=== PATIENT | male | born 1970 | race Two or more races ===

== ENCOUNTER 2018-08-05 18:28 | Inpatient (IN) | payer MEDICAID ==
[~2018-08-05] VITALS: Ht 180.3 cm; Wt 86.6 kg
[2018-08-05 19:53] LABS: CLARITY URINE CLEAR (CLEAR); COLOR URINE DARK YELLOW (YELLOW); KETONES URINE NEGATIVE (NEGATIVE); LEUKOCYTE ESTERASE URINE NEGATIVE (NEGATIVE); NITRITE URINE POSITIVE (NEGATIVE); OCCULT BLOOD URINE NEGATIVE (NEGATIVE); PROTEIN URINE NEGATIVE (NEGATIVE); SPECIFIC GRAVITY URINE 1.024 (1.005-1.030)
[2018-08-05 22:06] LABS: HEMATOCRIT. 42.4 % (42.0-52.0); HEMOGLOBIN. 14.1 g/dL (14.0-18.0); MEAN CORPUSCULAR HEMOGLOBIN 29.8 pg (28.0-32.0); MEAN CORPUSCULAR VOLUME 89.6 fL (80.0-94.0); MEAN PLATELET VOLUME 7.1 fl (7.4-10.4); PLATELET 218 x1000/uL (130-400); RED BLOOD CELL COUNT 4.73 mill/uL (4.7-6.1); RED CELL DISTRIBUTION WIDTH 13.8 % (11.6-14.6)
[2018-08-05 22:08] LABS: CHLORIDE 104 mEq/L (98-107)
[2018-08-05 22:10] LABS: INR 1.1
[2018-08-05] MEDS ORDERED: SODIUM CHLORIDE 0.9% 1,000 ML IV ONE (22:39)
[2018-08-05] MEDS ORDERED: ONDANSETRON HCL 4MG/2ML INJ IV STA (22:39)
[2018-08-05] MEDS ORDERED: KETOROLAC 30MG/ML VIAL IV STA (22:39)
[2018-08-05] MEDS ORDERED: MORPHINE SULFATE 4 MG/ML CPJ (NOT FOR IM USE) IV STA (22:39)
[2018-08-05 23:06] LABS: PLATELET ESTIMATE NORMAL
[2018-08-05] MEDS ORDERED: PIPERACILLIN/TAZ 3.375G PREMIX 50 ML IV ONE (23:45)
[2018-08-05] MEDS ORDERED: METRONIDAZOLE 500 MG PREMIX 100 ML IV ONE (23:45)
[2018-08-06] VITALS (7 sets, daily range): BP systolic 95–121; BP diastolic 50–70
[2018-08-06 00:07] LABS: CHLORIDE 104 mEq/L (98-107)
[2018-08-06 00:11] LABS: ETHANOL BLOOD < 10 mg/dL
[2018-08-06] MEDS ORDERED: SODIUM CHLORIDE 0.45% 1,000 ML IV SCH (00:36)
[2018-08-06] MEDS ORDERED: ACETAMINOPHEN 650MG SUPP PR PRN (00:45)
[2018-08-06] MEDS ORDERED: ONDANSETRON HCL 4MG/2ML INJ IV PRN ×2 (00:45→09:30)
[2018-08-06] MEDS ORDERED: HYDROCODONE/ACETAMINOPHEN 5/325MG TABLET PO PRN (00:45)
[2018-08-06] MEDS ORDERED: DIPHENHYDRAMINE 50MG/ML VIAL IV PRN (00:45)
[2018-08-06] MEDS ORDERED: DOCUSATE SODIUM 100MG CAPSULE PO PRN (00:45)
[2018-08-06] MEDS ORDERED: ACETAMINOPHEN 325MG TABLET PO PRN (00:45)
[2018-08-06] MEDS ORDERED: NA PHOS,M-B/NA PHOS,DI-BA ENEMA 118ML PR PRN (00:45)
[2018-08-06] MEDS ORDERED: HYDROCODONE/ACETAMINOPHEN 10/325MG TABLET PO PRN (00:45)
[2018-08-06] MEDS ORDERED: MAGNESIUM/ALUMINUM HYDROXIDE/SIMETHICONE 30ML UDC PO PRN (00:45)
[2018-08-06] MEDS ORDERED: GUAIFENESIN 200MG/10ML SUGAR FREE UDC PO PRN (00:45)
[2018-08-06] MEDS ORDERED: IPRATROPIUM/ALBUTEROL 0.5-3(2.5)MG/3ML NEB INH PRN (00:45)
[2018-08-06] MEDS ORDERED: CLONIDINE 0.1MG TABLET PO PRN (00:45)
[2018-08-06] MEDS ORDERED: ACETAMINOPHEN 650MG/20.3ML UDC GT PRN (00:45)
[2018-08-06] MEDS ORDERED: MULT-1146 MT (04:49)
[2018-08-06] MEDS ORDERED: ONDANSETRON 4MG ODT PO PRN (05:15)
[2018-08-06] MEDS ORDERED: CEFTRIAXONE 1 G PREMIX 50 ML IV SCH (06:00)
[2018-08-06] MEDS ORDERED: SODIUM CHLORIDE 0.9% INJ 3ML FLUSH IVF SCH (06:00)
[2018-08-06] MEDS ORDERED: ROCURONIUM BROMIDE 10MG/ML VIAL 5ML IV ONE ×2 (08:45→08:47)
[2018-08-06] MEDS ORDERED: NEOSTIGMINE METHYLSULFATE 1MG/ML 10 ML VIAL ONE (08:46)
[2018-08-06] MEDS ORDERED: FENTANYL CITRATE/PF 50MCG/ML 5ML VIAL ONE (08:47)
[2018-08-06] MEDS ORDERED: MIDAZOLAM HCL 2 MG/2 ML VIAL ONE (08:47)
[2018-08-06] MEDS ORDERED: DEXAMETHASONE 4MG/ML 1ML VIAL ONE (08:48)
[2018-08-06] MEDS ORDERED: LIDOCAINE HCL/PF 1% 10 MG/ML 5ML VIAL ONE (08:48)
[2018-08-06] MEDS ORDERED: ONDANSETRON HCL 4MG/2ML INJ ONE (08:48)
[2018-08-06] MEDS ORDERED: GLYCOPYRROLATE 0.2 MG/ML 2ML VIAL ONE (08:48)
[2018-08-06] MEDS ORDERED: PROPOFOL 200MG/20ML VIAL IV ONE (08:48)
[2018-08-06] MEDS ORDERED: KETOROLAC 30MG/ML VIAL ONE (08:48)
[2018-08-06] MEDS ORDERED: METOCLOPRAMIDE HCL 10MG/2ML VIAL ONE (08:48)
[2018-08-06] MEDS ORDERED: METRONIDAZOLE 500 MG PREMIX 100 ML IV SCH (09:00)
[2018-08-06] MEDS ORDERED: FENTANYL CITRATE/PF 50MCG/ML 2ML VIAL IV PRN (09:30)
[2018-08-06] MEDS ORDERED: HYDROMORPHONE HCL/PF 2MG/ML CPJ IV PRN (09:30)
[2018-08-06] MEDS ORDERED: DIPHENHYDRAMINE INJ IV PRN (10:15)
[2018-08-06] MEDS ORDERED: NALOXONE INJ IV PRN (10:15)
[2018-08-06] MEDS ORDERED: HYDROMORPHONE PCA 10MG/50ML IV PRN (10:15)
[2018-08-06] MEDS ORDERED: ONDANSETRON INJ IV PRN (10:15)
[2018-08-06] MEDS ORDERED: DEXT 5%/0.45% NACL KCL 20MEQ/L 1,000 ML IV SCH (11:45)
[2018-08-06] MEDS: DEXT 5%/0.45% NACL 1000ML 1,000 ML IV SCH (13:30)
[2018-08-06] MEDS: PIPERACILLIN/TAZ 3.375G PREMIX 50 ML IV SCH ×2 (14:56→20:49)
[2018-08-06] MEDS: METRONIDAZOLE 500 MG PREMIX 100 ML IV SCH (16:33)
[2018-08-07] MEDS: METRONIDAZOLE 500 MG PREMIX 100 ML IV SCH ×3 (00:28→17:09)
[2018-08-07] MEDS: DEXT 5%/0.45% NACL 1000ML 1,000 ML IV SCH ×3 (00:28→18:36)
[2018-08-07] MEDS: PIPERACILLIN/TAZ 3.375G PREMIX 50 ML IV SCH ×4 (03:57→20:00)
[2018-08-07 04:00] VITALS: BP 94/56
[2018-08-07 07:38] LABS: HEMATOCRIT. 33.9 % (42.0-52.0); HEMOGLOBIN. 11.6 g/dL (14.0-18.0); MEAN CORPUSCULAR HEMOGLOBIN 31.2 pg (28.0-32.0); MEAN PLATELET VOLUME 7.3 fl (7.4-10.4); MONOCYTES % 5.4 % (2.0-8.0); NEUTROPHILS % 85.6 % (40.0-76.0); PLATELET 184 x1000/uL (130-400); RED BLOOD CELL COUNT 3.73 mill/uL (4.7-6.1); RED CELL DISTRIBUTION WIDTH 14.1 % (11.6-14.6)
[2018-08-07 08:00] VITALS: BP 105/69
[2018-08-07 08:50] LABS: CHLORIDE 107 mEq/L (98-107)
[2018-08-07 08:59] LABS: LDL CHOLESTEROL 80 mg/dL (5-100)
[2018-08-07 09:01] LABS: HDL CHOLESTEROL 42 mg/dL (40-59)
[2018-08-07 12:00] VITALS: BP 110/67
[2018-08-07 16:00] VITALS: BP 126/76
[2018-08-07 20:00] VITALS: BP 117/74
[2018-08-08] VITALS: BP 124/70
[2018-08-08] MEDS: METRONIDAZOLE 500 MG PREMIX 100 ML IV SCH ×3 (00:29→17:00)
[2018-08-08] MEDS: PIPERACILLIN/TAZ 3.375G PREMIX 50 ML IV SCH ×4 (01:09→21:25)
[2018-08-08] MEDS: DEXT 5%/0.45% NACL 1000ML 1,000 ML IV SCH ×2 (03:38→16:59)
[2018-08-08 04:00] VITALS: BP 121/69
[2018-08-08 08:00] VITALS: BP 122/83
[2018-08-08 12:00] VITALS: BP 123/82
[2018-08-08 16:00] VITALS: BP 124/75
[2018-08-08 20:00] VITALS: BP 129/80
[2018-08-09] VITALS: BP 125/74
[2018-08-09] MEDS: METRONIDAZOLE 500 MG PREMIX 100 ML IV SCH ×3 (00:06→16:59)
[2018-08-09] MEDS: PIPERACILLIN/TAZ 3.375G PREMIX 50 ML IV SCH ×3 (02:50→13:48)
[2018-08-09 04:00] VITALS: BP 122/74
[2018-08-09] MEDS ORDERED: CEFTRIAXONE 1 G PREMIX 50 ML IV SCH (06:00)
[2018-08-09 08:00] VITALS: BP 126/82
[2018-08-09] MEDS: DEXT 5%/0.45% NACL 1000ML 1,000 ML IV SCH ×2 (08:43→10:33)
[2018-08-09 12:00] VITALS: BP 109/66
[2018-08-09 16:00] VITALS: BP 108/69
[2018-08-09 16:15] LABS: BASOPHILS % 0.4 % (0.0-2.0); EOSINOPHILS % 0.8 % (0.0-5.0); HEMOGLOBIN. 12.5 g/dL (14.0-18.0); LYMPHOCYTES % 12.1 % (20.0-50.0); MEAN CORPUSCULAR HEMOGLOBIN 30.1 pg (28.0-32.0); MEAN CORPUSCULAR VOLUME 88.7 fL (80.0-94.0); MEAN PLATELET VOLUME 6.9 fl (7.4-10.4); MONOCYTES % 9.3 % (2.0-8.0); NEUTROPHILS % 77.4 % (40.0-76.0); PLATELET 242 x1000/uL (130-400); RED BLOOD CELL COUNT 4.17 mill/uL (4.7-6.1); RED CELL DISTRIBUTION WIDTH 13.2 % (11.6-14.6)
[2018-08-09 16:24] LABS: CHLORIDE 104 mEq/L (98-107)
[2018-08-09 18:02] LABS: CLARITY URINE CLEAR (CLEAR); COLOR URINE YELLOW (YELLOW); KETONES URINE NEGATIVE (NEGATIVE); LEUKOCYTE ESTERASE URINE NEGATIVE (NEGATIVE); NITRITE URINE NEGATIVE (NEGATIVE); OCCULT BLOOD URINE NEGATIVE (NEGATIVE); PROTEIN URINE NEGATIVE (NEGATIVE); SPECIFIC GRAVITY URINE 1.008 (1.005-1.030); UROBILINOGEN URINE 0.2 E.U./dL (0.2-1.0)
[2018-08-09 20:00] VITALS: BP 120/77
[2018-08-09] MEDS ORDERED: LEVOFLOXACIN 500MG PREMIX 100 ML IV SCH (23:00)
[2018-08-10] VITALS: BP 125/81
[2018-08-10] MEDS: DEXT 5%/0.45% NACL 1000ML 1,000 ML IV SCH ×2 (00:14→06:04)
[2018-08-10 08:00] VITALS: BP 117/76
[2018-08-10 08:13] LABS: *AMPHETAMINES SCREEN URINE NEGATIVE (NEGATIVE); *BARBITURATES SCREEN URINE NEGATIVE (NEGATIVE); *BENZODIAZEPINES SCREEN URINE NEGATIVE (NEGATIVE); *COCAINE SCREEN URINE NEGATIVE (NEGATIVE); CANNABINOID URINE SCREEN NEGATIVE (NEGATIVE); METHADONE URINE SCREEN NEGATIVE (NEGATIVE); OPIATES URINE SCREEN NEGATIVE (NEGATIVE)
[2018-08-10 08:14] LABS: PHENCYCLIDINE URINE SCREEN NEGATIVE (NEGATIVE)
[2018-08-10 12:00] VITALS: BP 123/78
[2018-08-10 13:21] LABS: BASOPHILS % 0.3 % (0.0-2.0); EOSINOPHILS % 2.7 % (0.0-5.0); HEMATOCRIT. 39.9 % (42.0-52.0); HEMOGLOBIN. 13.5 g/dL (14.0-18.0); LYMPHOCYTES % 20.2 % (20.0-50.0); MEAN CORPUSCULAR HEMOGLOBIN 30.2 pg (28.0-32.0); MEAN CORPUSCULAR VOLUME 89.3 fL (80.0-94.0); MEAN PLATELET VOLUME 6.7 fl (7.4-10.4); MONOCYTES % 12.2 % (2.0-8.0); NEUTROPHILS % 64.6 % (40.0-76.0); PLATELET 251 x1000/uL (130-400); RED BLOOD CELL COUNT 4.47 mill/uL (4.7-6.1); RED CELL DISTRIBUTION WIDTH 13.2 % (11.6-14.6)
[2018-08-10 13:54] LABS: CHLORIDE 104 mEq/L (98-107)
[2018-08-10 14:11] VITALS: BP 120/78
[2018-08-10 16:00] VITALS: BP 120/78
[2018-08-10] MEDS ORDERED: LEVO500T2 MT (17:28)
== END 2018-08-10 20:45 | disposition home health service (06) | DRG 231 ==
LOC: ER 08-06 00:07 → 6EST 08-06 00:18 → EDBEDREQ 08-06 00:21 → EDBEDREQTM 08-06 00:21 → EDBEDREQDT 08-06 00:21 → ENRESERV 08-06 01:33
PROVIDERS: ADMIT Family Medicine; ATTEND Family Medicine
PROC: 0D1N0Z4 Bypass Sigmoid Colon to Cutaneous, Open Approach (ICD-10-PCS; 2018-08-06)
PROC: 0DTG0ZZ Resection of Left Large Intestine, Open Approach (ICD-10-PCS; principal; 2018-08-06 08:30)
DX: K57.20 Diverticulitis of large intestine with perforation and abscess without bleeding (principal); K66.8 Other specified disorders of peritoneum; R16.0 Hepatomegaly, not elsewhere classified; R31.9 Hematuria, unspecified; D72.829 Elevated white blood cell count, unspecified; N20.0 Calculus of kidney; M19.90 Unspecified osteoarthritis, unspecified site; Z79.899 Other long term (current) drug therapy
CPT/HCPCS: 36415; 74176; 76770; 80053; 80061; 80305; 81003; 83605; 83690; 84484; 85025; 85610; 87040; 87070; 87075; 87077; 87186; 87205; 96361; 96365; 96375; 97116; 97162; 99285; C1893; G0482; J0696; J1100; J1170; J1885; J1956; J2250; J2270; J2405; J2543; J2704; J2710; J2765; J3010; J3490; J7030

== ENCOUNTER 2019-01-19 07:02 | Inpatient (IN) | payer MEDICAID ==
[~2019-01-19] VITALS: Ht 180.3 cm; Wt 86.2 kg
[~2019-01-19 07:02] MED LIST: LACTATED RINGERS 1,000 ML IV SCH; LEVO500T2 MT; MULT-1146 MT
[2019-01-19] MEDS ORDERED: LEVOFLOXACIN 500MG PREMIX 100 ML IV ONE (09:09)
[2019-01-19] MEDS ORDERED: FENTANYL CITRATE/PF 50MCG/ML 2ML VIAL ONE ×2 (09:14→10:33)
[2019-01-19] MEDS ORDERED: MIDAZOLAM HCL 2 MG/2 ML VIAL ONE (09:14)
[2019-01-19] MEDS ORDERED: PROPOFOL 200MG/20ML VIAL IV ONE (09:14)
[2019-01-19] MEDS ORDERED: ROCURONIUM BROMIDE 10MG/ML VIAL 5ML IV ONE (09:14)
[2019-01-19] MEDS ORDERED: ACETAMINOPHEN 650MG SUPP PR PRN (09:15)
[2019-01-19] MEDS ORDERED: ONDANSETRON HCL 4MG/2ML INJ IV PRN ×2 (09:15→09:30)
[2019-01-19] MEDS ORDERED: FENTANYL CITRATE/PF 50MCG/ML 2ML VIAL IV PRN (09:30)
[2019-01-19] MEDS ORDERED: METRONIDAZOLE 500 MG PREMIX 100 ML IV ONE (09:47)
[2019-01-19] MEDS ORDERED: BUPIVACAINE HCL 0.5% 290 ML in ON-Q PM015 DRUG DELIV DEVICE 1 EA IR SCH (10:15)
[2019-01-19] MEDS ORDERED: BUPIVACAINE HCL 0.5% (5MG/ML) 50ML ONE (10:23)
[2019-01-19] MEDS ORDERED: NEOSTIGMINE METHYLSULFATE 1MG/ML 10 ML VIAL ONE (10:25)
[2019-01-19] MEDS ORDERED: ONDANSETRON HCL 4MG/2ML INJ ONE (10:25)
[2019-01-19] MEDS ORDERED: GLYCOPYRROLATE 0.2 MG/ML 2ML VIAL ONE (10:25)
[2019-01-19] MEDS ORDERED: DIPHENHYDRAMINE 50MG/ML VIAL ONE (10:26)
[2019-01-19] MEDS ORDERED: METOCLOPRAMIDE HCL 10MG/2ML VIAL ONE (10:26)
[2019-01-19] MEDS: HYDROMORPHONE HCL/PF 2MG/ML CPJ IV PRN ×5 (11:15→12:03)
[2019-01-19] MEDS ORDERED: NALOXONE INJ IV PRN (11:30)
[2019-01-19] MEDS ORDERED: DIPHENHYDRAMINE INJ IV PRN (11:30)
[2019-01-19] MEDS ORDERED: ONDANSETRON INJ IV PRN (11:30)
[2019-01-19 12:00] VITALS: BP 105/65
[2019-01-19] MEDS: HYDROMORPHONE PCA 10MG/50ML IV PRN (12:20)
[2019-01-19 13:00] VITALS: BP 105/65
[2019-01-19] MEDS: METRONIDAZOLE 500 MG PREMIX 100 ML IV SCH ×2 (14:59→22:17)
[2019-01-19] MEDS: DEXT 5%/0.45% NACL KCL 20MEQ/L 1,000 ML IV SCH (14:59)
[2019-01-19 20:00] VITALS: BP 114/75
[2019-01-19] MEDS: FAMOTIDINE 20MG/2ML VIAL IV SCH (22:17)
[2019-01-20] VITALS: BP 109/67
[2019-01-20] MEDS: DEXT 5%/0.45% NACL KCL 20MEQ/L 1,000 ML IV SCH ×3 (01:30→23:23)
[2019-01-20 04:00] VITALS: BP 102/67
[2019-01-20] MEDS: METRONIDAZOLE 500 MG PREMIX 100 ML IV SCH (06:41)
[2019-01-20 08:00] VITALS: BP 110/67
[2019-01-20] MEDS: FAMOTIDINE 20MG/2ML VIAL IV SCH ×2 (08:43→23:23)
[2019-01-20] MEDS ORDERED: LEVOFLOXACIN 500MG PREMIX 100 ML IV SCH (09:00)
[2019-01-20 12:00] VITALS: BP 112/67
[2019-01-20] MEDS: HYDROMORPHONE PCA 10MG/50ML IV PRN (15:12)
[2019-01-20 16:00] VITALS: BP 100/57
[2019-01-20 20:00] VITALS: BP 112/68
[2019-01-21] VITALS: BP 110/66
[2019-01-21 04:00] VITALS: BP 112/67
[2019-01-21 08:00] VITALS: BP 110/67
[2019-01-21] MEDS: FAMOTIDINE 20MG/2ML VIAL IV SCH ×2 (09:07→20:47)
[2019-01-21] MEDS: DEXT 5%/0.45% NACL KCL 20MEQ/L 1,000 ML IV SCH ×3 (09:07→20:47)
[2019-01-21 11:55] VITALS: BP 111/66
[2019-01-21 16:00] VITALS: BP 105/62
[2019-01-21] MEDS ORDERED: MORPHINE SULFATE 4 MG/ML CPJ (NOT FOR IM USE) IV PRN (18:26)
[2019-01-21 20:00] VITALS: BP 118/74
[2019-01-22] VITALS: BP 110/71
[2019-01-22 04:00] VITALS: BP 102/64
[2019-01-22 08:00] VITALS: BP 111/71
[2019-01-22] MEDS: FAMOTIDINE 20MG/2ML VIAL IV SCH ×2 (08:29→22:21)
[2019-01-22 12:00] VITALS: BP 107/71
[2019-01-22] MEDS: DEXT 5%/0.45% NACL KCL 20MEQ/L 1,000 ML IV SCH (12:23)
[2019-01-22 16:00] VITALS: BP 111/70
[2019-01-22 20:00] VITALS: BP 114/72
[2019-01-23] VITALS: BP 118/66
[2019-01-23 08:00] VITALS: BP 124/75
[2019-01-23] MEDS: DEXT 5%/0.45% NACL KCL 20MEQ/L 1,000 ML IV SCH ×2 (08:30→12:55)
[2019-01-23] MEDS: FAMOTIDINE 20MG/2ML VIAL IV SCH ×2 (09:03→20:58)
[2019-01-23 12:00] VITALS: BP 110/79
[2019-01-23 16:00] VITALS: BP 116/74
[2019-01-23 20:00] VITALS: BP 116/75
[2019-01-24] VITALS (7 sets, daily range): BP systolic 104–122; BP diastolic 66–73
[2019-01-24] MEDS: DEXT 5%/0.45% NACL KCL 20MEQ/L 1,000 ML IV SCH (08:27)
[2019-01-24] MEDS: FAMOTIDINE 20MG/2ML VIAL IV SCH ×2 (08:27→08:30)
== END 2019-01-24 21:10 | disposition home health service (06) | DRG 231 ==
LOC: OR 07:02 → 6EST 07:03
PROVIDERS: ADMIT Surgery; ATTEND Surgery
PROC: 0DBP0ZZ Excision of Rectum, Open Approach (ICD-10-PCS; principal; 2019-01-19)
PROC: 0DBM0ZZ Excision of Descending Colon, Open Approach (ICD-10-PCS; 2019-01-19)
DX: Z43.3 Encounter for attention to colostomy (principal)
CPT/HCPCS: 36415; 86850; 86900; 88305; J1170; J1200; J1956; J2250; J2405; J2704; J2710; J2765; J3010; J3490